=== PATIENT | female | born 1965 | race Caucasian/White ===

== ENCOUNTER 2016-08-14 17:44 | Emergency (ER) | payer OTHER ==
[~2016-08-14] VITALS: Ht 157.4 cm; Wt 80.3 kg
[2016-08-14] MEDS ORDERED: SILVADENE1% T (18:13)
[2016-08-14] MEDS ORDERED: ZYRTEC10 MG PO (18:19)
[2016-08-14] MEDS ORDERED: QUINAPRIL5 MG PO (18:20)
[2016-08-15] MEDS ORDERED: CELEXA10 MG PO (18:14)
[2016-08-15] MEDS ORDERED: SYNTHROID25 MCG PO (18:14)
[2016-08-15] MEDS ORDERED: KEFLEX500 M1 PO (18:21)
== END 2016-08-14 18:42 | disposition home or self-care (01) ==
LOC: ED 17:44
DX: T21.11XA Burn of first degree of chest wall, initial encounter (principal); T21.12XA Burn of first degree of abdominal wall, initial encounter; R03.0 Elevated blood-pressure reading, without diagnosis of hypertension; X19.XXXA Contact with other heat and hot substances, initial encounter; Y93.89 Activity, other specified; Y92.9 Unspecified place or not applicable; Y99.9 Unspecified external cause status

== ENCOUNTER 2016-08-15 18:05 | Emergency (ER) | payer OTHER ==
[~2016-08-15] VITALS: Ht 157.4 cm; Wt 80.3 kg
[~2016-08-15 18:05] MED LIST: QUINAPRIL5 MG PO; SILVADENE1% T; ZYRTEC10 MG PO
[2016-08-15] MEDS ORDERED: SYNTHROID25 MCG PO (18:14)
[2016-08-15] MEDS ORDERED: CELEXA10 MG PO (18:14)
[2016-08-15] MEDS ORDERED: KEFLEX500 M1 PO (18:21)
== END 2016-08-15 18:58 | disposition home or self-care (01) ==
LOC: ED 18:05
DX: T21.21XD Burn of second degree of chest wall, subsequent encounter (principal); R03.0 Elevated blood-pressure reading, without diagnosis of hypertension; X10.1XXD Contact with hot food, subsequent encounter; Z79.899 Other long term (current) drug therapy

== ENCOUNTER 2021-02-10 09:53 | Emergency (ER) | payer SELFPAY ==
[~2021-02-10 09:53] MED LIST changes: +CELEXA10 MG PO; +KEFLEX500 M1 PO; +SYNTHROID25 MCG PO
[2021-02-10] MEDS ORDERED: Motrin,Rufen800 MG PO (11:31)
[2021-02-10] MEDS ORDERED: AMOXICILLIN875 MG PO (11:31)
== END 2021-02-10 11:29 | disposition home or self-care (01) ==
LOC: ED 09:53
DX: K08.89 Other specified disorders of teeth and supporting structures (principal)